=== PATIENT | male | born 1960 | race Asian ===

== ENCOUNTER → 2025-01-23 | Outpatient (CLI) | payer MEDICARE, OTHER ==
[~2025-01-23] MED LIST: AMLO-258 PO; ASPI-1444 PO; Bisacodyl PR; DOCU50LI40 PO; FAMO20 PO; FLUT16SP NASAL; FOLI0.4T3 PO; INSLAN SQ; INSU100V3 SQ; SEMA0.258 SQ
== END | disposition home or self-care (01) ==
LOC: RADMN 10:00
PROVIDERS: ATTEND Physical Medicine & Rehabilitation
DX: M19.012 Primary osteoarthritis, left shoulder (principal); M25.512 Pain in left shoulder; M25.412 Effusion, left shoulder
CPT/HCPCS: 73030-TC